=== PATIENT | female | born 1960 | race Caucasian/White ===

== ENCOUNTER 2024-03-28 08:21 | Emergency (ER) | payer OTHER ==
[2024-03-28 09:13] VITALS: BP 130/81; PULSE 72; RESP 17; TEMP 98.6; BMI 25.6
[2024-03-28] MEDS ORDERED: ACETAMINOPHEN 500 MG TABLET (FP) ONE (09:23)
[2024-03-28] MEDS: ACETAMINOPHEN 500 MG TABLET (FP) PO ONE (09:25)
== END 2024-03-28 09:47 | disposition home or self-care (01) ==
LOC: JERFT 08:21 → JER 08:21 → JERFT 09:47
DX: S62.615A Displaced fracture of proximal phalanx of left ring finger, initial encounter for closed fracture (principal); W54.8XXA Other contact with dog, initial encounter; Y93.01 Activity, walking, marching and hiking
CPT/HCPCS: 73130-TC-LT-FY; 73140-TC-LT-FY; 99282-25